=== PATIENT | male | born 1955 | race Caucasian/White ===

== ENCOUNTER 2018-12-20 08:05 | Emergency (ER) | payer OTHER ==
[2018-12-20] MEDS ORDERED: Aspirin 325 MG TAB ONE (08:38)
[2018-12-20] MEDS ORDERED: Nitroglycerin 2% Ointment 1 INCH/1 GM Packet ONE (08:38)
--- NOTE | 2018-12-20 08:40 | RAD ---
EXAM: Single view of the chest HISTORY: Chest pain COMPARISON: None FINDINGS: Single view of the chest shows a normal sized cardiomediastinal silhouette. There is no ayla dence of consolidation, mass, or pleural effusion. The bones are unremarkable. IMPRESSION: No evidence of acute cardiopulmonary disease
[2018-12-20 08:58] LABS: #Basophils 0.1 thou/uL (0.0-0.2); #Eosinphils 0.1 thou/uL (0.0-0.7); #Lymphocytes 1.1 thou/uL (1.20-3.40); #Monocytes 0.6 thou/uL (0.11-0.59); #Neutrophils 3.7 thou/uL (1.40-6.50); %Basophils 0.9 % (0.0-1.0); %Eosinophils 2.6 % (0.0-10.0); %Lymphocytes 19.3 % (21.0-51.0); %Monocytes 11.2 % (0.0-10.0); ALT (SGPT) 13 U/L (8-55); AST (SGOT) 12 U/L (5-34); Albumin 4.4 g/dL (3.4-4.8); Alkaline Phosphatase 70 U/L (40-110); Anion Gap 12 mmol/L (10-20); BUN (Urea Nitrogen) 10 mg/dL (8.4-25.7); Bilirubin, Total 0.8 mg/dL (0.2-1.2); CK (CPK) 72 U/L (30-200); Calc. Creatinine Clearance 0 mL/min (70-130); Calcium 9.5 mg/dL (7.8-10.44); Carbon Dioxide 26 mmol/L (23-31); Chloride 105 mmol/L (98-107); Estimated GFR-MDRD 87; Globulin 2.8 g/dL (2.4-3.5); Glucose 103 mg/dL (80-115); Lipase 9 U/L (8-78); Mean Corpuscular HGB CONC 34.4 g/dL (32.0-36.0); Mean Corpuscular Hemoglobin 33.4 pg (27.0-31.0); Mean Corpuscular Volume 97.1 fL (78.0-98.0); Mean Platelet Volume 8.3 fL (7.4-10.4); Platelet Count 287 thou/uL (130-400); Potassium 3.8 mmol/L (3.5-5.1); Protein, Total 7.2 g/dL (5.8-8.1); RBC Distribution Width 11.9 % (11.5-14.5); Red Blood Cell (RBC) Count 4.51 mill/uL (4.70-6.10); Sodium 139 mmol/L (136-145); White Blood Cell (WBC) Count 5.6 thou/uL (4.8-10.8)
[2018-12-20] MEDS ORDERED: Acetaminophen 500 MG TAB ONE (10:09)
[2018-12-20] MEDS ORDERED: Losartan 25 MG TAB PO SCH (11:00)
[2018-12-20 11:31] LABS: Troponin I Less than 0.010 ng/mL (< 0.028)
== END 2018-12-20 11:54 | disposition home or self-care (01) ==
LOC: ERS 08:05
DX: R07.89 Other chest pain (principal); I10 Essential (primary) hypertension; Z79.899 Other long term (current) drug therapy
CPT/HCPCS: 36415; 71045; 80053; 82550; 83690; 84484; 85025; 93005